=== PATIENT | male | born 1950 | race African-American/Black ===

== ENCOUNTER 2019-01-21 15:38 | Emergency (ER) | payer OTHER ==
[~2019-01-21] VITALS: Ht 188 cm; Wt 74.8 kg
[2019-01-21 17:48] VITALS: BP 113/84
== END 2019-01-21 17:48 | disposition home or self-care (01) ==
LOC: ER 15:38
DX: S09.8XXA Other specified injuries of head, initial encounter (principal); F03.90 Unspecified dementia, unspecified severity, without behavioral disturbance, psychotic disturbance, mood disturbance, and anxiety; E11.9 Type 2 diabetes mellitus without complications; M10.9 Gout, unspecified; Z88.0 Allergy status to penicillin; Z88.5 Allergy status to narcotic agent; W18.39XA Other fall on same level, initial encounter; Y93.89 Activity, other specified; Y92.128 Other place in nursing home as the place of occurrence of the external cause; Y99.8 Other external cause status

== ENCOUNTER 2019-01-26 22:13 | Inpatient (IN) | payer OTHER ==
[~2019-01-26] VITALS: Ht 188 cm; Wt 81.6 kg
[2019-01-26 22:14] VITALS: BP 112/84
[2019-01-27] VITALS (7 sets, daily range): BP systolic 110–131; BP diastolic 74–87
--- NOTE | 2019-01-27 00:32 | NUR ---
LAB AT BEDSIDE FOR SECOND ATTEMPT. DR. ALEJANDRO AWARE
--- NOTE | 2019-01-27 00:37 | NUR ---
LAB UNSUCCESSFUL AT ATTEMPT NUMBER 2 STATING PT WAS NOT COOPERATING WITH DRAW. PT'S DAUGHTER DOES NOT WANT PT TO BE STUCK AGAIN.
--- NOTE | 2019-01-27 01:35 | NUR ---
PT'S SPOUSE WAS GETTING VERBALLY THREATENING WITH RONNIE DUENAS WHILE SHE WAS ATTEMPTING TO DRAW BLOOD.
[2019-01-27 01:40] LABS: ABSOLUTE NEUTROPHILS 7.8 thou/uL (1.4-8.2); BASOPHILS 0.4 % (0.0-2.0); HEMATOCRIT 45.8 % (42.0-52.0); HEMOGLOBIN 14.7 gm/dL (14.0-18.0); LYMPHOCYTES 19.5 % (24.0-44.0); MCH 25.7 pg (26.0-34.0); MCHC 32.1 g/dL (28.0-37.0); MCV 80.1 fL (80.0-100.0); MONOCYTES 11.5 % (1.0-8.0); PLATELET COUNT 88 thou/uL (150-400); POLYS 67.6 % (36.0-66.0); RBC 5.72 mil/uL (4.50-6.00); RDW 15.2 % (10.5-14.5); WBC 11.5 thou/uL (4.0-11.0)
[2019-01-27 01:48] LABS: ANION GAP 13 mmol/L (7-16); BUN 21 mg/dL (7-18); CALCIUM 9.7 mg/dL (8.5-10.1); CHLORIDE 102 mmol/L (98-107); CO2 23 mmol/L (21-32); CREATININE 2.1 mg/dL (0.7-1.3); GLUCOSE 225 mg/dL (74-106); POTASSIUM 4.7 mmol/L (3.5-5.1); SODIUM 138 mmol/L (136-145)
[2019-01-27 01:56] LABS: TROPONIN-I <0.06 ng/mL (<0.06)
[2019-01-27] MEDS ORDERED: ATORVASTATIN CA40 MG PO (02:36)
[2019-01-27] MEDS ORDERED: NOVOLOG100 UNIT/1 SUBQ (02:37)
[2019-01-27] MEDS ORDERED: PROTONIX 20 MG20 M1 PO (02:37)
[2019-01-27] MEDS ORDERED: MEMANTINE HCL E28 MG PO (02:38)
[2019-01-27] MEDS ORDERED: LANTUS SUBQ (02:38)
[2019-01-27] MEDS ORDERED: HUMALOG100 UNIT/1 SUBQ (02:39)
[2019-01-27] MEDS ORDERED: NEURONTIN 300300 M1 PO (02:39)
[2019-01-27] MEDS ORDERED: FLOMAX0.4 MG PO (02:39)
[2019-01-27] MEDS ORDERED: SEROQUEL 25 MG25 M1 PO (02:40)
[2019-01-27] MEDS ORDERED: VITAMIN D1000 UNI1 PO (02:41)
[2019-01-27] MEDS ORDERED: TYLENOL325 MG PO (02:42)
--- NOTE | 2019-01-27 07:45 | NUR ---
PT WAS ADMITTED TO THE FLOOR IN A STABLE CONDITION.ADMISSION HX,ASSESSMENT PARTIALLY COMPLETED DUE PT'S DEMENTIA.FALL PRECAUTIONS IMPLEMENTED.IVF INFUSING ORDERED.PT RESTING ON HIS BED AT THIS TIME.CALL LIGHT WITHIN REACH.REPORT TO AM NURSE.
--- NOTE | 2019-01-27 17:53 | NUR ---
ASSUMED CARE OF PT AT 0700. ASSESSMENT COMPLETED. PT ALERT AND ORIENTED TO SELF, PLACE, AND SITUATION. HX DEMENTIA. DENIES PAIN, N/V, SOA OR CHEST PAIN. PT SLEPT THROUGHOUT THE DAY. ACHS, INSULIN GIVEN PER SLIDING SCALE. PT IN STABLE CONDITION. WILL CONTINUE TO MONITOR UNTIL EOS.
--- NOTE | 2019-01-27 18:50 | EKG ---
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 : 1950 Requested By: Mateus Gaona Order Number: [id number] MD: Sanjay Lim Measurements Intervals [place]amy Rate: 97 P: 55 IN: 151 QRS: -4 QRSD: 96 T: 53 QT: 374 QTc: 475 Interpretive Statements Sinus rhythm Consider V2 V3 reversal Leftward axis Nonspecific ST-T wave changes No previous ECG available for comparison Electronically Signed On 01-27-2019 18:49:45 CDT by Sanjay Lim [email or web address] ��������������������������������������������� <ELECTRONICALLY SIGNED> ���������������������������������������� By: Sanjay Lim MD ��������������������������������������������� 01/27/19 1849 2215 2215 Sanjay Lim MD /SHANKAR
[2019-01-28 03:50] LABS: HEMATOCRIT 41.5 % (42.0-52.0); HEMOGLOBIN 13.4 gm/dL (14.0-18.0); MCH 25.5 pg (26.0-34.0); MCHC 32.3 g/dL (28.0-37.0); RBC 5.25 mil/uL (4.50-6.00); RDW 15.2 % (10.5-14.5); WBC 9.9 thou/uL (4.0-11.0)
[2019-01-28 04:02] LABS: CALCIUM 8.8 mg/dL (8.5-10.1); CREATININE 1.9 mg/dL (0.7-1.3); POTASSIUM 3.9 mmol/L (3.5-5.1)
[2019-01-28 04:40] VITALS: BP 108/81
--- NOTE | 2019-01-28 06:00 | NUR ---
Assumed care of pt at 1900. Pt alert and oriented x2-3. Feeling sleepy. Denies pain. SBA to bedside commode. Fall precautions in place. Will continue to monitor.
[2019-01-28 07:11] VITALS: BP 101/66
--- NOTE | 2019-01-28 11:21 | NUR ---
PT A&OX4, IV INTACT IN R HAND. AMBULATES WITH STAND BY ASSIST. WILL CONT POC.
[2019-01-28 16:16] VITALS: BP 120/85
[2019-01-28 20:08] VITALS: BP 114/81
--- NOTE | 2019-01-29 01:45 | NUR ---
Assumed care of pt at 1900. No c/o pain. Able to ambulate SBA to the restroom. Pt's daughter in room at shift change. No other concerns at this time. Fall precautions in place. Will continue to monitor.
[2019-01-29 04:41] VITALS: BP 115/78
[2019-01-29 07:54] VITALS: BP 98/64
[2019-01-29 08:25] LABS: CALCIUM 9.5 mg/dL (8.5-10.1); CREATININE 1.9 mg/dL (0.7-1.3); POTASSIUM 3.9 mmol/L (3.5-5.1)
--- NOTE | 2019-01-29 14:14 | NUR ---
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 S/W DPOA JOEL AND WITH YOUNGEST DTR TORSTEN AND THEY ARE IN AGREEMENT WITH HOSPICE CARE. S/W LESTER ADMISSIONS LIASION TO SEE WHAT HOSPICE AGENCIES THEY USE. THEY USES [facility] AND [facility]. OFFERED OPTIONS TO DTR JOEL AND SHE CHOSE [facility]. DC TITLE EXAMINER TO NOTIFY CEIBA OF [facility]. DC ORDERS RECEIVED FOR TODAY AND FAMILY AWARE.
--- NOTE | 2019-01-29 14:52 | NUR ---
PT IS DISCHARGING BACK TO [facility] WITH [facility]. FAXED DC ORDERS/SUMMARY TO FACILITY AND SPOKE WITH LESTER IN ADM. SHE RECEIVED DC ORDERS AND ARRANGED TRANSPORT VIA [facility] FOR [phone]. NOTIFIED FAMILY (JOEL) OF DISCHARGE AND TIME OF TRANSPORT. UNIT NOTIFIED AND CHART COPY PER US. RN TO CALL REPORT TO [phone].
--- NOTE | 2019-01-29 17:41 | NUR ---
ASSUMED CARE OF PT AT 0700. ASSESSMENT CHARTED. ALERT TO SELF, PLACE, AND SITUATION. HX DEMENTIA. NOT IMPULSIVE. FALL RISK PRECAUTIONS IN PLACE. DENIES PAIN, N/V/D. NO SOA OR CHEST PAIN. DAUGHTERS AT BEDSIDE TODAY. NEW DISCHARGE ORDERS TO RETURN TO [facility]. IV REMOVED, NO ACTIVE BLEEDING. PT LEFT VIA WHEELCHAIR IN STABLE CONDITION AT 16:30. REPORT CALLED TO FACILITY.
== END 2019-01-29 16:27 | DRG 682 ==
LOC: ER 22:13 → 4E 01-27 02:16 → EROBS 01-27 02:16 → 4E 01-27 03:22
PROVIDERS: Emergency Medicine; Nurse Practitioner Acute Care; ADMIT Hospitalist
DX: N17.9 Acute kidney failure, unspecified (principal); G93.41 Metabolic encephalopathy; I42.9 Cardiomyopathy, unspecified; Z66 Do not resuscitate; D69.6 Thrombocytopenia, unspecified; F03.90 Unspecified dementia, unspecified severity, without behavioral disturbance, psychotic disturbance, mood disturbance, and anxiety; E86.0 Dehydration; E11.9 Type 2 diabetes mellitus without complications; M10.9 Gout, unspecified; Z79.4 Long term (current) use of insulin; Z79.899 Other long term (current) drug therapy; Z88.0 Allergy status to penicillin; Z88.5 Allergy status to narcotic agent
CPT/HCPCS: 10084